=== PATIENT | male | born 1985 | race Caucasian/White ===

== ENCOUNTER 2018-08-22 09:23 | Emergency (ER) | payer SELFPAY ==
[2018-08-22 09:24] VITALS: BP 154/103; PULSE 58; RESP 18; TEMP 36.4; O2SAT 100; BMI 27.8
[2018-08-22 09:59] VITALS: PULSE 66; RESP 16
[2018-08-22] MEDS: Ipratropium/Albuterol Sulfate 3 ML AMPUL.NEB INHALATION (09:59)
[2018-08-22] MEDS: 0.9% Normal Saline 1,000 ML 1000 ML IV ×2 (10:15→11:25)
[2018-08-22] MEDS: Ondansetron 4 MG/2 ML Vial IV ×2 (10:15→11:25)
[2018-08-22 10:30] LABS: Absolute Lymphocyte Count 2.03 X10^3/ul (0.83-4.51); Absolute Neutrophil Count 14.3 X10^3/uL (2.0-7.7); Basophil# 0.05 X10^3/uL; Basophil% 0.3 % (0-1); Eosinophil# 0.18 X10^3/uL; Hematocrit 43.8 % (40-54); Hemoglobin 15.9 g/dl (13.0-16.5); Lymphocyte # 2.03 X10^3/ul (4.0); Lymphocyte % 11.4 % (19-41); Mean Corp Hgb Conc 36.3 g/gl (32-36); Mean Corpuscular Hgb 31.7 pg (27.0-32.0); Mean Corpuscular Volume 87.3 fL (80-94); Mean Platelet Vol. 9.9 fl (6.2-12.0); Monocyte# 1.23 X10^3/uL; Monocyte% 6.9 % (0-10); Neutrophil # 14.34 X10^3/uL (2.7-7.7); Neutrophil % 80.2 % (47-70); Platelet Count 255 K/mm3 (150-450); RBC Distribution Width CV 12.4 % (11.6-14.6); RBC Distribution Width SD 39.9 fl (35.1-43.9); Red Blood Count 5.02 M/mm3 (4.6-6.2); White Blood Count 17.9 K/mm3 (4.4-11.0)
[2018-08-22 10:35] LABS: POSITIVE COUNT NO; POSITIVE DIFFERENTIAL NO; POSITIVE MORPHOLOGY NO
[2018-08-22 10:40] LABS: ALB/GLOB Ratio 1.4 RATIO (0.9-2.4); AST(SGOT) 13 U/L (15-37); Alanine Aminotransfer ALT/SGPT 22 U/L (16-61); Albumin, Serum 4.2 g/dL (3.2-5.0); Alkaline Phosphatase 78 U/L (45-117); Anion Gap 11 (5-15); BUN 11 mg/dL (7-18); BUN/Creat Ratio 10.4 RATIO (10-20); Calcium,Total 9.4 mg/dL (8.5-10.1); Chloride 110 mmol/L (98-107); Creatinine, Serum 1.06 mg/dL (0.70-1.30); EST Glomerular Filtration Rate 86 mL/min (>60); Est Glom Filt Rate - Afr Amer 104 mL/min (>60); Estimated Creatinine Clearance 110.83 ml/min; Globulin 3.1 g/dL (2.2-4.2); Glucose 127 mg/dL (74-106); Lipase 84 U/L (73-393); Potassium 3.3 mmol/L (3.5-5.1); Protein, Total 7.3 g/dL (6.4-8.2); Sodium Level 141 mmol/L (136-145)
--- NOTE | 2018-08-22 10:50 | CT_ITS ---
STUDY: CT ABDOMEN AND PELVIS WITH CONTRAST REASON FOR EXAM: Male, 33 years old. 4 day history of mid abdominal pain with nausea and vomiting. RADIATION DOSAGE (If Supplied By Facility): CTDIvol = ( 13.28 ) mGy, DLP = ( 879.34 ) mGycm TECHNIQUE: Transaxial images were obtained from the dome of the diaphragm to the symphysis pubis with oral contrast. 100CC IV/Oral Isovue 300 was administered. Sagittal and coronal images were reconstructed. Individualized dose optimization techniques were used for this CT. COMPARISON: Comparison is made with prior study dated September 19, 2012. FINDINGS: The visualized lung bases are unremarkable. The visualized portions of the heart are within normal limits. Normal liver. Normal gallbladder and extrahepatic biliary system. Normal spleen. Normal pancreas. Normal bilateral adrenal glands. Normal right kidney. Normal left kidney. There is a small hiatal hernia. Normal small intestine. Normal colon. The appendix is visualized and appears normal. Normal abdominal aorta. Normal inferior vena cava. Normal retroperitoneum. Normal urinary bladder. Normal abdominal wall. Normal osseous structures. CT/Abdomen/Pelvis WITH Contrast IMPRESSION: Normal enhanced CT of the abdomen and pelvis. Electronically Signed: Chester Garrett, at 14:23 EDT , Service support ,
--- NOTE | 2018-08-22 10:52 | ED.DCSUM_ITS ---
- ER Visit Summary Date of Service: 08/22/18 Chief Complaint: Abdominal pain vomiting History of Present Illness: The patient is a 33 M who presents emergency room with nausea vomiting. Patient states that Wednesday 2 hours after he ate lunch with his kids developed nausea and vomiting. Persisted through Wednesday and into Wednesday but by Wednesday night felt good enough that he had some chicken noodle soup. However this morning he continued to vomit. He notes a generalized abdominal pain. He notes some paresthesias in his lips and hands. He notes a headache. Also states on the way here to the hospital his chest felt tight and he developed a cough. He states he is a remote history of asthma but does not take anything for it and he is a heavy smoker. No reported fevers. No bad food exposure. No recent travel. No well water. Patient has not had any diarrhea. Physical Examination: Afebrile vital signs are stable Gen: Well-nourished well-developed Head: Normocephalic atraumatic Eyes: Perrl EOMI ENT: TMs clear no rhinorrhea moist mucous membranes Neck: Supple no lymphadenopathy no JVD nontender CVS: Regular rate rhythm no murmurs normal S1-S2 Respiratory: No distress clear to auscultation bilaterally chest nontender Abdomen: Soft generally tender to palpation without guarding or rebound nondistended normal bowel sounds no masses Back: Nontender Extremity: Nontender no edema Skin: Normal color no rash Neuro: alert orientated ?3 CN II-XII intact normal strength sensation reflexes gait cerebellar Psych: Normal affect normal mood Test Results: White blood cell count elevated at 17. CMP and lipase are negative. CT of the abdomen pelvis obtained was negative. Emergency Department Course and Treatment: Patient received IV fluids Zofran. He also received a DuoNeb. Patient is feeling better. Patient will be discharged home with prescription for Zofran. Return if worsening or concerns. Impression: 1. Gastroenteritis 2. Mild dehydration This note was generated with [employer] dictation software. It may contain incorrect words, spelling, and punctuation that were not noted in review of the chart prior to signing ED Disposition - Plan for ED Patient: Disposition: Home or Assisted Living Instructions: ED Gastroenteritis Viral Prescriptions: Ondansetron [Zofran Odt] 4 mg PO Q6H PRN PRN #14 tab PRN Reason: Nausea Referrals: Rich Ocampo MD [STAFF PHYSICIAN] - (for primary care needs)
[2018-08-22 11:45] VITALS: BP 148/95; PULSE 47; RESP 18; O2SAT 100
== END 2018-08-22 15:00 | disposition home or self-care (01) ==
PROVIDERS: Emergency Provider Emergency Medicine
DX: K52.9 Noninfective gastroenteritis and colitis, unspecified (principal); E86.0 Dehydration; R20.2 Paresthesia of skin; R51 Headache; K21.9 Gastro-esophageal reflux disease without esophagitis; Z72.0 Tobacco use; Z79.899 Other long term (current) drug therapy
CPT/HCPCS: 74177; 80053; 83690; 85025; 94640; 96361; 96374; 96376; 99282; J7030; A4216; J2405

== ENCOUNTER 2019-11-09 15:09 | Emergency (ER) | payer MEDICAID, SELFPAY ==
[2019-11-09 15:10] VITALS: BP 158/103; PULSE 48; RESP 16; TEMP 36.4; O2SAT 99; BMI 28.7
--- NOTE | 2019-11-09 15:20 | ED.DCSUM_ITS ---
History of Present Illness Chief Complaint: Abd Pain Informant: Patient Onset: Today Context: Gradual Onset Timing: Continuous Current Severity: Moderate Maximum Severity: Moderate Narrative: The patient is a 34-year-old male with no significant medical history but does have history of marijuana abuse that presents with nausea vomiting and abdominal cramping. The patient states that started this morning. He states he diffuse abdominal cramping with nausea and vomiting. He states he vomited approximately 10 times. His emesis has been nonbloody, nonbilious. He denies any fevers or chills. 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 Prior similar symptoms: Yes Recent Illness/Hospitalization: No Past Medical History - Allergies and Home Meds Allergies/Adverse Reactions: Allergies No Known Allergies Allergy (Verified 11/09/19 15:12) Primary Care Physician: Care Physician,No Primary [Primary Care Provider] - Prior records reviewed: Yes Past Medical History: None Surgical History: no surgical history Smoking Status: Never smoker Review of Systems General: Denies: Chills, Fever, Sweats Eyes: Denies: Visual changes - bilaterally, Diplopia ENT: Denies: Rhinorrhea, Sore throat Cardiovascular: Denies: Chest pain, Palpitations Respiratory: Denies: Dyspnea, Cough, Dyspnea on exertion Gastrointestinal: Reports: Nausea, Vomiting. Denies: Abdominal pain, Diarrhea, Melena, Hematochezia Genitourinary: Denies: Dysuria, Hematuria, Frequency Musculoskeletal: Denies: Back pain, Extremity Pain Skin: Denies: Rash, Wounds Neurological: Denies: Headache, Weakness, Numbness Physical Exam Vital Signs/Narrative: Vital Signs Temp Pulse Resp BP Pulse Ox 11/09/19 15:10 97.5 F L 48 L 16 158/103 H 99 Inital Vital Signs reviewed: Yes General: Well nourished, Well developed, No Acute Distress Head: Normocephalic, Atraumatic Eyes: Perrl, EOMI ENT: Moist mucous membranes, No rhinorrhea Neck: Supple, Nontender Cardiovascular: Regular rate, Regular rhythm, No murmurs Respiratory: No distress, CTA bilaterally, Chest nontender Abdomen: Soft, Nontender, Nondistended, Hyperactive bowel sounds Back: Nontender, Normal Inspection Extremities: Nontender, No edema Skin: Normal color, No rash Neurological: Alert, Oriented x3, Cranial nerves II-XII grossly intact, Normal Strength, Normal Sensation Psychological: Normal affect, Normal Mood Diagnostic/Tx/Re-eval - Medical Decision Making Patient has no reproducible abdominal tenderness on exam. His symptoms do seem most consistent with cannabinoid hyperemesis. IV is established. The patient will be treated with antiemetics and fluids. He will undergo metabolic work-up. I do feel as long as this is unremarkable, patient was able to be safely discharged with antiemetics and antispasmodics. He will be reevaluated with completion of labs and medication. At that point, I do for the patient will likely be able to be discharged, pending results of work-up. Impression 1. Nausea vomiting ED Disposition - Plan for ED Patient: Instructions: ED Nausea Vomiting Adult Prescriptions: Dicyclomine HCl [Bentyl] 20 mg PO TIDAC #20 cap Prescription Printed Ondansetron [Zofran Odt] 4 mg PO Q8H PRN PRN #10 tab PRN Reason: Nausea Prescription Printed Referrals: Care Physician,No Primary [Primary Care Provider] -
[2019-11-09 16:48] LABS: Absolute Lymphocyte Count 0.95 X10^3/uL (0.83-4.51); Absolute Neutrophil Count 14.5 X10^3/uL (2.0-7.7); Basophil# 0.04 X10^3/uL; Basophil% 0.2 % (0-1); Eosinophil# 0.01 X10^3/uL; Eosinophils% 0.1 % (0-5); Hematocrit 43.8 % (40-54); Hemoglobin 15.4 g/dL (13.0-16.5); Lymphocyte # 0.95 X10^3/ul (4.0); Lymphocyte % 5.9 % (19-41); Mean Corp Hgb Conc 35.2 g/dL (32-36); Mean Corpuscular Hgb 31.6 pg (27.0-32.0); Mean Corpuscular Volume 89.8 fL (80-94); Mean Platelet Vol. 10.2 fl (6.2-12.0); Monocyte# 0.53 X10^3/uL; Monocyte% 3.3 % (0-10); NRBC Flagged by Analyzer 0 % (0-5); Neutrophil # 14.48 X10^3/uL (2.7-7.7); Platelet Count 262 K/mm3 (150-450); RBC Distribution Width CV 11.8 % (11.6-14.6); RBC Distribution Width SD 38.5 fl (35.1-43.9); Red Blood Count 4.88 M/mm3 (4.6-6.2); White Blood Count 16.1 K/mm3 (4.4-11.0)
[2019-11-09] MEDS: Ketorolac 15 MG/ML Vial IV (16:53)
[2019-11-09] MEDS: proMETHazine 25 MG/ML Syringe 12.5 MG IV (16:54)
[2019-11-09] MEDS: 0.9% Normal Saline 1,000 ML 1000 ML IV (16:58)
[2019-11-09] MEDS: Dicyclomine 20 MG/2 ML Vial IM (16:58)
[2019-11-09 17:02] VITALS: RESP 20
[2019-11-09 17:12] LABS: ALB/GLOB Ratio 1.4 RATIO (0.9-2.4); AST(SGOT) 6 U/L (15-37); Alanine Aminotransfer ALT/SGPT 26 U/L (16-61); Albumin, Serum 4.3 g/dL (3.2-5.0); Alkaline Phosphatase 81 U/L (45-117); Anion Gap 5 (5-15); BUN 14 mg/dL (7-18); BUN/Creat Ratio 14.4 RATIO (10-20); Calcium,Total 9.6 mg/dL (8.5-10.1); Chloride 113 mmol/L (98-107); Creatinine, Serum 0.97 mg/dL (0.70-1.30); EST Glomerular Filtration Rate 95 mL/min (>60); Est Glom Filt Rate - Afr Amer 115 mL/min (>60); Glucose 131 mg/dL (74-106); Lipase 38 U/L (73-393); Potassium 4.2 mmol/L (3.5-5.1); Protein, Total 7.3 g/dL (6.4-8.2); Sodium Level 143 mmol/L (136-145)
== END 2019-11-09 18:02 | disposition home or self-care (01) ==
PROVIDERS: Emergency Provider Emergency Medicine
DX: R11.2 Nausea with vomiting, unspecified (principal)
CPT/HCPCS: 80053; 83690; 85025; 96361; 96372; 96374; 96375; 99283

== ENCOUNTER 2022-03-25 08:23 | Emergency (ER) | payer MEDICAID, SELFPAY ==
[2022-03-25 08:23] VITALS: BP 153/118; PULSE 82; RESP 16; TEMP 36; O2SAT 99; BMI 30.7
--- NOTE | 2022-03-25 08:48 | VDLE_ITS ---
Reason For Study: Pain Procedure LEFT This is a venous duplex using B-mode, color GSV is normal. flow and spectral Doppler. CFV is compressible, spontaneous, phasic, Exam performed portable in ED. competent, and demonstrates normal A preliminary report was called and/or faxed augmentation. to ED. FV is compressible, spontaneous, phasic, competent and demonstrates normal augmentation. POP V is compressible, spontaneous, phasic, competent and demonstrates normal augmentation. T/P Trunk is compressible. PTV is compressible. LT PerV is compressible. VL/Venous Duplex US, Unilateral Interpretation Summary There is no evidence of left lower extremity deep vein thrombosis. Left great s aphenous vein appears patent and compressible segmentally. Ordering Physician: Matt Mccord Performed By: Nia Long RVT
--- NOTE | 2022-03-25 08:49 | EDS_ITS ---
HPI History of Present Illness Chief Complaint: Lower Extremity Injury Informant: patient Narrative Narrative: nontraumatic left lower leg pain on the lateral aspect for the past 4 days worsening over 2 days. Started have some back discomfort also. Works on his feet walking around. He does do lifting. No inciting event. Has history years ago similar that resolved over time. He was sent to a clinic and was just placed on naproxen that did not help with time improved this. No loss of bowel or bladder control. Denies any allergies. Denies any past medical history. No medications taken. He states position of comfort is in a flexed knee on the bed at this time. Prior similar symptoms: Yes PFSH PFSH Medical History no medical history Home Medications dicyclomine 10 mg capsule 20 mg PO TIDAC #20 caps 11/09/19 [Rx Last Taken Unknown] ondansetron 4 mg disintegrating tablet 4 mg PO Q8H PRN PRN Nausea #10 tabs 11/09/19 [Rx Last Taken Unknown] ibuprofen 600 mg tablet 600 mg PO 4X/DAY PRN Pain Or Fever #20 tabs 03/25/22 [Rx Last Taken Unknown] orphenadrine citrate 100 mg tablet,extended release 100 mg PO BID PRN back pain #20 tabs 03/25/22 [Rx Last Taken Unknown] Allergy/AdvReac Type Severity Reaction Status Date / Time No Known Allergies Allergy Verified 03/25/22 08:25 Family History no significant family his Surgical History no surgical history Social History Smoking Status: Current every day smoker tobacco type: cigarettes ROS ROS ED Constitutional Constitutional ED: Denies chills, fever(s) or sweats Eyes Eyes: Denies change in vision ENT ENT ED: Denies dysphagia or sore throat Cardiovascular Cardiovascular: Denies chest pain, leg edema, palpitations or racing heartbeat Respiratory/Chest Respiratory/Chest: Denies cough, dyspnea or dyspnea on exertion Gastrointestinal Gastrointestinal: Denies abdominal pain, diarrhea, nausea or vomiting Genitourinary Genitourinary ED: Denies dysuria, hematuria or urinary frequency Musculoskeletal Musculoskeletal: Reports back pain and extremity pain; Denies neck pain Integumentary Denies rash or wounds Neurologic Neurologic: Denies headache(s), paresthesias or weakness EXAM Physical Exam Const Vital Signs: 03/25/22 08:23 Temperature 96.8 F L Temperature Source Temporal Pulse Rate 82 Respiratory Rate 16 Blood Pressure 153/118 H Blood Pressure Mean 129 Pulse Ox 99 Oxygen Delivery Method Room Air Positive well nourished and well developed Constitutional Narrative: Standing position of comfort slightly bent over with left knee flexed on the bed. General Appearance ED: well developed and NAD HEENT Reports moist mucous membranes normocephalic and atraumatic Eyes PERRL, EOMs intact bilaterally and conjunctivae normal General Eye ED: Yes normal appearance of both eyes Neck no lymphadenopathy and supple General: Negative for tenderness Chest Wall Chest: Negative for tenderness Resp normal respiratory effort and normal air movement Effort and Inspection: symmetric chest movement; Negative for respiratory distress Cardio regular rate, regular rhythm and no murmurs Peripheral Pulses: pulses 2+ throughout GI normal to inspection, nondistended, normoactive bowel sounds and non-tender Palpation: Negative for guarding or rebound tenderness present Back/Spine no CVA tenderness Back/Spine Narrative: No midline tenderness left paralumbar tenderness. Straight leg test was negative. 2+ patellar reflex bilaterally. Extremity Extremity Narrative: Left lower extremity: No medial thigh tenderness there is tenderness in the calf region along with the lateral aspect along the fibula. There is no rash. Skin intact. General Extremety ED: Negative for edema or tenderness General Extremity: Negative for edema Neuro oriented x3 and no sensory deficits noted Sensorium / Orientation: awake and alert Skin no rashes or lesions noted and no wounds MDM MDM MDM Narrative Medical decision making narrative: Patient presenting with back pain with concerning sciatica symptoms however has pain down the lateral aspect lower leg consistent with the peroneal nerve distribution. There is no rash. He had calf pain therefore ultrasound was obtained to rule out DVT. This was negative. He was treated with IM Toradol and Norflex. Reevaluate is able to bear weight on his leg and walk. Prescription for NSAIDs and muscle relaxers written. He has no cauda equina symptoms. He will follow-up as an outpatient further testing. All questions were answered. Radiography Diagnostic Testing: Clinical Impression(s) from Imaging Studies Venous Doppler Study 03/25/22 08:48 Interpretation Summary There is no evidence of left lower extremity deep vein thrombosis. Left great saphenous vein appears patent and compressible segmentally. Ordering Physician: Matt Mccord Performed By: Nia Long RVT Discharge Plan Triage Chief Complaint: Lower Extremity Injury ED Provider: Matt Mccord Dx/Rx/DC Orders Clinical Impression: Acute left-sided back pain with sciatica Instructions: ED Sciatica Prescriptions: New ibuprofen 600 mg tablet 600 mg PO 4X/DAY PRN (Reason: Pain Or Fever) Qty: 20 0RF orphenadrine citrate 100 mg tablet extended release 100 mg PO BID PRN (Reason: back pain) Qty: 20 0RF No Action ondansetron 4 MG tablet 4 mg PO Q8H PRN PRN (Reason: Nausea) Qty: 10 0RF dicyclomine 10 MG capsule 20 mg PO TIDAC Qty: 20 0RF Primary Care Provider: Care Physician,No Primary Referrals: Polo Angel MD [Med Staff - Project Controller] - 5-7 Days Care Physician,No Primary [Primary Care Provider] - Activity Restrictions/Additional Instructions: Your history concerns for sciatica on the left side however you do have pain along the lateral leg down the fibula which could be common peroneal nerve irritation. Take medication as prescribed. Follow-up as an outpatient further management and testing as needed. Disposition Disposition: Home, Self Care Discharge Date/Time: 03/25/22 10:21
[2022-03-25] MEDS: Orphenadrine 60 MG/2 ML Ampul IM (09:07)
[2022-03-25] MEDS: Ketorolac 15 MG/ML Vial IM (09:07)
== END 2022-03-25 10:21 | disposition home or self-care (01) ==
PROVIDERS: Emergency Provider Emergency Medicine; Visit Provider Emergency Medicine
DX: M54.42 Lumbago with sciatica, left side (principal); F17.210 Nicotine dependence, cigarettes, uncomplicated
CPT/HCPCS: 93971; 96372; 99282

== ENCOUNTER → 2022-03-26 | Outpatient (CLI) | payer MEDICAID, SELFPAY ==
--- NOTE | 2022-03-26 16:49 | RAD_ITS ---
STUDY: X-RAY - LUMBAR SPINE REASON FOR EXAM: Male, 37 years old. 3-4 day history of low back pain. TECHNIQUE: 3 view(s) of the lumbar spine were obtained. COMPARISON: None FINDINGS: There is straightening of the normal lumbar lordosis. There is no substantial scoliosis. There is a normal alignment of the vertebrae. Normal vertebral bodies and endplates. Moderate degree of disc space narrowing and spondylosis at the L5-S1 level. Mild degree of disc space narrowing and spondylosis at the L4-L5 level. The soft tissue structures are unremarkable. RAD/Lumbar Spine 2 or 3 Views IMPRESSION: Degenerative changes of the spine, as detailed above. Straightening of the normal lumbar lordosis. Electronically Signed: Chester Garrett MD at 10:46 EST ,
== END | disposition home or self-care (01) ==
LOC: MTRAD 16:47
PROVIDERS: PCP Family Medicine; Referring Provider Family Medicine; Visit Provider Family Medicine
DX: M47.26 Other spondylosis with radiculopathy, lumbar region (principal); M47.27 Other spondylosis with radiculopathy, lumbosacral region; M48.061 Spinal stenosis, lumbar region without neurogenic claudication; M48.07 Spinal stenosis, lumbosacral region
CPT/HCPCS: 72100

== ENCOUNTER 2022-05-20 09:30 | Outpatient (RCR) | payer MEDICAID, SELFPAY ==
--- NOTE | 2022-04-16 11:29 | HP.PTEVAL ---
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 Date of Evaluation: 04/16/22 Physical Therapist: Ameya Burks, PT, Cert MDT, OCS - Visit Plan Frequency: 2x /Week Duration: 4 Weeks Plan: PT INETERRTVETIONS INTIALLY MODALTIES PROGRESS TO GRADED DLS ,POSTURAL EX'S AND ACTIVITY MODIFICATION ,POSTURE/BODY MECHANICS - Subjective This 37 y/o male presents to physical therapy with left lumbar radiculopathy. Patient has had symptoms initially starting 2006 had MRI showed extrusion L4-5 ,L-5 S1. Eventually symptoms got better. Mar pain became very intense Mar 25 had to go to ER tried injections and pain medication. Did x-rays showed mod DDD ,did US to r/o DVT. Provided medication prednisone . Seen family DR recommended PT. Location [place] lateral calf pain and occasional hamstring. Patient has some lumbar. Patient has tingling. Patient was so intense ,patient was in bed 3 days and crawled to bed. Patient RTW . Patient is very anxious about pain. Aggravating bending ,lifting sitting affects job Alleviating walking. Coughing/sneezing +.Bowel/ bladder -. Pain affects sleeping. Patient pain affect QOL and function. SOCAIL: . VOCATION : [employer] - Pain Left Lower Extremity Pain Intensity (Out of 10): 4 Comment: calf - Objective POSTURE: mild forward posture. GAIT: reciprocal pattern antalgic. NEURO: c/o paresthesia/tingling left leg , reflexes L3-4 ,L4-5 ,L5-S1 3/3 , +ANR. PALPATION: unremarkable. SYMMTRIES: align. MMT: right quads/hams/hip flexion and ankle 4/5 ,left peak force quads 21.3 , hamstrings 23.4 ,hip flexion 23.4 , ankle 4/5. LUMBAR ROM: mod loss ,extension mod loss pain ,side glides mod loss - Special Tests L/S Slump test left side: Positive L/S Slump test right side: Negative L/S Left Straight Leg Raise: Negative L/S Right Straight Leg Raise: Positive Lumbar Standing: Flexion - Mechanical Response: No effect Lumbar Standing: Flexion - Symptoms During Testing: Increases Lumbar Standing: Flexion - Symptoms After Testing: Worse Lumbar Standing: Extension - Mechanical Response: No effect Lumbar Standing: Extension - Symptoms During Testing: Increases Lumbar Standing: Extension - Symptoms After Testing: Worse Lumbar Standing: Right Side Glides - Mechanical Response: No effect Lumbar Standing: Right Side [place] - Symptoms During Testing: No effect Lumbar Standing: Right Side [place] - Symptoms After Testing: No effect Lumbar Standing: Left Side [place] - Mechanical Response: No effect Lumbar Standing: Left Side [place] - Symptoms During Testing: Increases Lumbar Standing: Left Side [place] - Symptoms After Testing: Worse Lumbar Lying: Flexion - Mechanical Response: No effect Lumbar Lying: Flexion - Symptoms During Testing: Increases Lumbar Lying: Flexion - Symptoms After Testing: Worse Lumbar Lying: Extension - Mechanical Response: No effect Lumbar Lying: Extension - Symptoms During Testing: Increases Lumbar Lying: Extension - Symptoms After Testing: Worse - Balance/Special Test Scores Oswestry Low Back Score: 35 - Goals Goal 1:: Patient to be I with HEP for back Goal Time Frame: 4-6 Weeks Goal 2:: Patient to demonstrate 50% improvement to improve function with less pain Goal Time Frame: 4-6 Weeks Goal 3:: Patient to improve lumbar ROM for function of recovery to perform job demands Goal Time Frame: 4-6 Weeks Goal 4:: Patient to improve peak force of quads/hams tp 5-10 to improve gait Goal Time Frame: 4-6 Weeks Goal 5:: Patient to improve back oswestry by 5 points to improve QOL Goal Time Frame: 4-6 Weeks - Rehabilitation Potential Physical Therapy Diagnosis: Patient has lumbar radiculopathy with possible HNP with h/o of extrusion with pain increases with position and motion testing wosre with bending lifting some better with walking thus benefit from skilled PT and may benefit from MRI Rehabilitation Potential: Fair - Anticipated Interventions Patient/Client Instruction: Educate patient on: Condition, Plan of Care For the Purpose of:: To decrease pain, To increase ROM, To improve muscle performance and motor function, To improve ability to perform ADL's, To increase tolerance to activity/condition/position, To improve performance and independence with ADL's, To improve ability of physical actions for home/community/work/leisure, To improve health of tissue, To decrease soft tissue restriction, To increase flexibility/ROM, To improve endurance Therapeutic Exercise to Include: Strength training, Endurance training, Balance training, Body mechanics, Postural training, Flexibilty training, Dynamic Lumbar Stabilization, [place] Exercises For the Purpose of:: To decrease swelling/inflammation, To increase ROM, To improve nutrient delivery to tissue, To increase oxygenation perfusion, To improve health of tissue, To decrease soft tissue restriction, To increase flexibility/ROM TENS: Yes IF ES: Yes Thermo therapy (hot pack): Yes Ultrasound (thermal/non thermal): Yes For the Purpose of:: To decrease pain, To increase ROM, To improve nutrient delivery to tissue, To increase oxygenation perfusion, To improve health of tissue, To decrease soft tissue restriction Thank you for the opportunity to evaluate your patient. For Medicare and Medicare HMO plans, please review the plan of care and approve it. It will need to be FAXED BACK to us at [phone] for Medicare purposes. For Medicare only, by signing this I certify the plan of care. Please let me know if there are questions or concerns regarding this plan of care. Physician Signature: Date:
--- NOTE | 2022-10-14 13:38 | HP.PTDCSUM ---
Discharge Summary D/C summary: It has been my pleasure to treat KULWANT GRIER referred by Earnest Erazo MD, with the diagnosis of ACUTE LEFT SIDE LOW BACK PAIN WITH LEFT SIDE SDIE SCIATICA for a total of 5 visit(s). Discharge Date: Please see the following information for a summary of their discharge status. Subjective Subjective: Patient had MRI Plan to see Wednesday to review MRI pain is in knee Pain Left Lower Extremity: Pain Intensity (Out of 10): 4 Objective Objective/Function: Responded well with modalities less pain but not sustainable will review MRI with DR Goals Goal 1:: Patient to be I with HEP for back Goal 2:: Patient to demonstrate 50% improvement to improve function with less pain Goal 3:: Patient to improve lumbar ROM for function of recovery to perform job demands Goal 4:: Patient to improve peak force of quads/hams tp 5-10 to improve gait Goal 5:: Patient to improve back oswestry by 5 points to improve QOL Plan Plan: D/C RTD D/C Information d/c sentence: If there are questions or concerns regarding this patient's physical therapy, please feel free to call me at [phone]. Thank you for the referral of this patient. Sincerely, Ameya Burks, PT, Cert MDT, OCS Balance/Gait/Functional tests Balance/Special Test Scores Oswestry Low Back Score: 35
== END 2022-05-20 19:00 | disposition home or self-care (01) ==
LOC: PT 09:30
PROVIDERS: PCP Family Medicine; Referring Provider Family Medicine; Visit Provider Family Medicine
DX: M54.42 Lumbago with sciatica, left side (principal)
CPT/HCPCS: 97035; 97110; 97162; 97530

== ENCOUNTER 2024-11-29 11:39 | Emergency (ER) | payer BC, SELFPAY ==
[2024-11-29 11:40] VITALS: BP 134/91; PULSE 72; RESP 14; TEMP 37.3; O2SAT 98; BMI 29.0
--- NOTE | 2024-11-29 11:47 | EDS_ITS ---
HPI HPI - GI History of Present Illness Chief Complaint: Abd Pain Informant: patient Abdominal Pain/Flank Pain Onset: Days (5) Context: Gradual Onset Timing: Continuous Quality: Dull and - (Throbbing) Location: RUQ Worsened by: Car ride Relieved by: - (Heat) Nausea/Vomiting/Emesis GI Symptom: Positive for Nausea and Vomiting Onset: Days (5) Quality: Negative for Blood streaks, Coffee ground or Hematemesis Diarrhea/Melena/Hematochezia GI Symptom: Positive for Melena (Dark stools); Negative for Diarrhea or Hematochezia Associated Symptoms Associated Symptoms: Negative for Dysuria, Frequency or Hematuria Narrative Narrative: Patient presents with abdominal pain, nausea, and vomiting that is been getting worse over the past 5 days. Patient states he has a history of Crohn's disease. Patient denies any diarrhea. Patient states his stool was black the other day. Patient denies any hematemesis or coffee-ground emesis. Patient states he is having difficulty keeping things down. Patient admits to some right upper abdominal pain. Patient describes it as dull and throbbing. Patient states it is constant. Patient denies any fevers or chills. Patient does admit to decreased appetite. Patient denies any urinary symptoms. [facility] Medical History (Updated 11/29/24 @ 15:[address] Rey Heck DO) High cholesterol Crohn disease Home Medications ?Medication ?Instructions ?Recorded ?Last Taken ?Type dicyclomine 10 mg capsule 20 mg (2 x 10 mg) PO TIDAC # 20 caps 11/09/19 Unknown Rx ibuprofen 600 mg tablet 600 mg PO 4X/DAY PRN Pain Or Fever 03/25/22 Unknown Rx #20 tabs orphenadrine citrate 100 mg 100 mg PO BID PRN back becca n #20 03/25/22 Unknown Rx tablet,extended release tabs ondansetron 4 mg disintegrating 4 mg PO Q8H PRN PRN Na usea #10 tabs 11/29/24 Unknown Rx tablet prednisone 20 mg tablet 60 mg (3 x 20 mg) PO DAILY # 15 11/29/24 Unknown Rx TABLETS Allergy/AdvReac Type Severity Reaction Status Date / Time No Known Allergies Allergy Verified 11/29/24 11:43 Social History Smoking Status: Current every day smoker tobacco type: cigarettes EXAM Physical Exam Const Vital Signs: 11/29/24 11:40 11/29/24 13:39 Temperature 99.1 F Temperature Source Oral Pulse Rate 72 54 L Respiratory Rate 14 18 Blood Pressure 134/91 H 126/70 H Blood Pressure Mean 105 88 Pulse Ox 98 99 Oxygen Delivery Method Room Air Room Air MDM MDM MDM Narrative Medical decision making narrative: Differential diagnosis includes exacerbation of Crohn's disease, diverticulitis, colitis, bowel obstruction, perforation, dehydration, and electrolyte abnormality. CBC will be obtained to assess for leukocytosis and anemia. Comprehensive metabolic profile will be obtained to assess for electrolyte abnormality, renal function, and hepatic function. Lipase will be obtained to assess for pancreatitis. Urinalysis will be obtained to assess for urinary tract infection and hematuria. Lab Data Attestation: I reviewed the patient's lab results. Lab results narrative: CBC was reviewed and was within normal limits. Comprehensive metabolic profile was reviewed and was within normal limits. Lipase was reviewed and was normal at 18. Urinalysis was reviewed. There is no evidence of urinary tract infection or hematuria. Labs: Laboratory Results - last 24 hr 11/29/24 11/29/24 12:15 12:20 WBC 9.6 RBC 4.64 Hgb 14.9 Hct 40.5 MCV 87.3 MCH 32.1 H MCHC 36.8 H RDW Std Deviation 37.2 RDW Coeff of Rachel 11.5 L Plt Count 261 MPV 9.8 Immature Gran % (Auto) 0.500 Neut % (Auto) 69.4 Lymph % (Auto) 20.3 Will % (Auto) 7.2 Eos % (Auto) 1.9 Baso % (Auto) 0.7 Absolute Neuts (auto) 6.7 Absolute Lymphs (auto) 1.95 Nucleated RBC % 0 Sodium 138 Potassium 3.8 Chloride 103 Carbon Dioxide 22.7 Anion Gap 12 BUN 14 Creatinine 0.90 Estim Creat Clear Calc 131.80 Est GFR (MDRD) Non-Af 113 BUN/Creatinine Ratio 15.3 Glucose 101 H Calcium 9.4 Total Bilirubin 0.59 AST 13 ALT 20 Alkaline Phosphatase 70 Total Protein 6.8 Albumin 4.5 Globulin 2.3 Albumin/Globulin Ratio 1.9 Lipase 18 Urine Color Yellow Urine Clarity Clear Urine pH 6.0 Ur Specific [place] 1.025 Urine Protein 30 H Urine Glucose (UA) Normal Urine Ketones Negative Urine Occult Blood 10 H Urine Nitrite Negative Urine Bilirubin 1 H Urine Urobilinogen 8 H Ur Leukocyte Esterase 25 H Urine RBC 0 SEEN Urine WBC 0-5 SEEN Ur Squamous Epith Cells 0 SEEN Urine Bacteria 1+ Urine Mucus 1+ Radiography Diagnostic Testing: Clinical Impression(s) from Imaging Studies Abdomen/Pelvis CT 11/29/24 12:30 IMPRESSION: Nondistended fluid-filled bowel loops suggest diffuse enteritis No suspicious solid organ abnormality No free intraperitoneal fluid, air, or suspicious adenopathy, normal appendix visualized Bony structures are normal Reading Location: [facility] CT scan of the abdomen and pelvis was obtained. There are nondistended fluid- filled bowel loops suggestive of enteritis. There is no free air or free fluid. The appendix was visualized and was normal. There is no other acute abnormality noted. This was interpreted by the radiologist and was also independently reviewed by myself. Treatment and Re-Evaluation :: Patient was given IV fluids, morphine, and Zofran. Patient was advised of his findings. Patient is feeling better on reevaluation. Patient was given prescriptions for prednisone and Zofran. Patient was instructed to start with a liquid diet and advance as tolerated. 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 Patient was instructed to return if worse in any way. Patient understood and was agreeable with the plan. All questions were answered. Discharge Plan Triage Chief Complaint: Abd Pain ED Provider: Rey Heck Dx/Rx/DC Orders Clinical Impression: Crohn's disease, Abdominal pain Instructions: ED Crohn's Disease Prescriptions: New prednisone 20 mg tablet 60 mg PO DAILY Qty: 15 0RF Continued ondansetron 4 MG tablet 4 mg PO Q8H PRN PRN (Reason: Nausea) Qty: 10 0RF No Action dicyclomine 10 MG capsule 20 mg PO TIDAC Qty: 20 0RF ibuprofen 600 mg tablet 600 mg PO 4X/DAY PRN (Reason: Pain Or Fever) Qty: 20 0RF orphenadrine citrate 100 mg tablet extended release 100 mg PO BID PRN (Reason: back pain) Qty: 20 0RF Primary Care Provider: Earnest Erazo Referrals: Polo Angel MD [Med Staff - [employer]] - Print Language: Chinese Disposition Disposition: Home, Self Care
[2024-11-29] MEDS: 0.9% Normal Saline (1000mL) 1,000 ML 999 ML IV (12:15)
[2024-11-29 12:26] LABS: Red Blood Cells-Urine 0 SEEN /hpf (0-5); Squamous Epithelial Cells - UA 0 SEEN /hpf (0-5)
[2024-11-29 12:30] LABS: Color, Urine Yellow (Yellow); Glucose, Dipstick Normal (Normal); Ketone-Dipstick Negative (Negative); Leukocyte Esterase-Dipstick 25 /ul (Negative); Nitrite-Dipstick Negative (Negative); Occult Blood-Urine 10 /ul (Negative); Protein-Dipstick 30 mg/dl (Negative); Specific Gravity, Urine 1.025 (1.002-1.030); Urine Bilirubin Dipstick 1 mg/dL (Negative)
[2024-11-29 12:30] LABS: Hematocrit 40.5 % (40-54); Hemoglobin 14.9 g/dL (13.0-16.5); Immature Granulocytes Count 0.050 X10^3/uL (0.0-0.0); Mean Corp Hgb Conc 36.8 g/dL (32-36); Mean Corpuscular Volume 87.3 fL (80-94); Mean Platelet Vol. 9.8 fl (6.2-12.0); NRBC Flagged by Analyzer 0 % (0-5); Platelet Count 261 K/mm3 (150-450); RBC Distribution Width CV 11.5 % (11.6-14.6); RBC Distribution Width SD 37.2 fl (35.1-43.9); Red Blood Count 4.64 M/mm3 (4.6-6.2); White Blood Count 9.6 K/mm3 (4.4-11.0)
--- NOTE | 2024-11-29 12:30 | CT_ITS ---
PROCEDURE: ABDOMEN/PELVIS W IV CONT ONLY 11/29/2024 REASON FOR EXAM: Diffuse abdominal pain TECHNIQUE: ABDOMEN/PELVIS W IV CONT ONLY Coronal and Sagittal reconstruction series were provided. CONTRAST: Isovue 370 VOLUME: 100 mL One or more dose reduction techniques were used (e.g., Automated exposure control, adjustment of the mA and/or kV according to patient size, use of iterative reconstruction technique. RADIATION DOSE SUMMARY: CTDlvol: 25.67 mGy DLP: 867.71 mGycm COMPARISON: None FINDINGS: Lung bases: Mild dependent atelectasis Liver: Normal size. No mass. Gallbladder: Unremarkable Spleen: Normal size. 1 cm accessory spleen noted Pancreas: Normal size without evidence of mass surrounding inflammation or ductal dilation. Adrenals: Unremarkable Kidneys: No obstructive uropathy or suspicious solid renal lesion Bladder: Incompletely distended Bowel: Nondistended fluid-filled bowel loops consistent with diffuse enteritis. Appendix: Normal appendix seen on coronal recon images 54 through 67. Lymph nodes: No suspicious mesenteric or retroperitoneal lymph nodes Vasculature: The abdominal aorta and IVC are normal. Peritoneum / Retroperitoneum: No free fluid or air Bones: Unremarkable CT/Abdomen/Pelvis W IV Cont ONLY IMPRESSION: Nondistended fluid-filled bowel loops suggest diffuse enteritis No suspicious solid organ abnormality No free intraperitoneal fluid, air, or suspicious adenopathy, normal appendix v isualized Bony structures are normal Reading Location: [id number]
[2024-11-29 12:36] LABS: Mucous, Urine 1+ /hpf (<or=2+)
[2024-11-29 13:22] LABS: AST(SGOT) 13 U/L (<=37); Alanine Aminotransfer ALT/SGPT 20 U/L (<=46); Albumin, Serum 4.5 g/dL (3.5-5.0); Alkaline Phosphatase 70 U/L (40-129); Anion Gap 12 (5-15); BUN 14 mg/dL (4-19); BUN/Creat Ratio 15.3 RATIO (10-20); Calcium,Total 9.4 mg/dL (7.6-11.0); Carbon Dioxide 22.7 mmol/L (21.0-32.0); Chloride 103 mmol/L (98-108); Estimated Creatinine Clearance 131.80 ml/min (50-250); Globulin 2.3 g/dL (2.2-4.2); Glucose 101 mg/dL (70-99); Lipase 18 U/L (13-75); Potassium 3.8 mmol/L (3.3-5.1)
[2024-11-29 13:39] VITALS: BP 126/70; PULSE 54; RESP 18; O2SAT 99
[2024-11-29 15:14] VITALS: BP 114/66; PULSE 53; RESP 16; TEMP -12.7; TEMP 9; O2SAT 97
== END 2024-11-29 15:14 | disposition home or self-care (01) ==
PROVIDERS: Emergency Provider Emergency Medicine; PCP Family Medicine; Visit Provider Emergency Medicine
DX: K50.90 Crohn's disease, unspecified, without complications (principal); R10.11 Right upper quadrant pain; R11.2 Nausea with vomiting, unspecified; E78.00 Pure hypercholesterolemia, unspecified; F17.210 Nicotine dependence, cigarettes, uncomplicated
CPT/HCPCS: 74177; 80053; 81001; 83690; 85025; 96361; 96374; 96375; 99283; Q9967; A4216; J2405